=== PATIENT | female | born 1970 | race Caucasian/White ===

== ENCOUNTER 2022-07-17 14:24 | Emergency (ER) | payer OTHER ==
[~2022-07-17] VITALS: Ht 170.2 cm; Wt 74.8 kg
[2022-07-17] MEDS ORDERED: CALCIUM 250-VI1 EACH (15:07)
[2022-07-17] MEDS ORDERED: CELEBREX200 MG PO (15:08)
[2022-07-17] MEDS ORDERED: FERROUS SULFAT325 MG PO (15:08)
[2022-07-17] MEDS ORDERED: VITAMIN C1000 MG PO (15:08)
[2022-07-17] MEDS ORDERED: NALTREXONE HCL50 MG PO (15:09)
[2022-07-17] MEDS ORDERED: ZYRTEC10 M3 PO (15:09)
[2022-07-17] MEDS ORDERED: PROZAC20 MG PO (15:09)
[2022-07-17] MEDS ORDERED: GABAPENTIN300 MG PO (15:10)
[2022-07-17] MEDS ORDERED: CARAFATE1 GM PO (17:58)
[2022-07-17] MEDS ORDERED: PRILOSEC OTC20 MG PO (17:58)
--- OUTSIDE RECORDS SUMMARY | 2022-07-17 21:40 | XMS ---
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 Call the orthopaedic surgeon therapist for ED Substance Use/Overdose 08/21/2019 [facility] Client is currently in [facility] \T\amp; MH services. Call the orthopaedic surgeon therapist for ED. E.D. VISIT COUNT (12 MO.) 2 [facility] H. 1 TORI Hwang TOTAL 3 NOTE: Visits indicate total known visits. ED/UCC VISIT TRACKING (12 MO.) 07/17/2022 14:25 [facility] TYPE: Emergency COMPLAINT: - MULTIPLE COMPLAINTS [facility] COMPLAINT: - ETOH INTOXICATION 03/16/2022 14:23 [facility] COMPLAINT: - confusion INPATIENT VISIT TRACKING (12 MO.) No inpatient visits to display in this time frame [email or web address]
== END 2022-07-17 18:14 | disposition home or self-care (01) ==
LOC: ED 14:24
DX: K21.9 Gastro-esophageal reflux disease without esophagitis (principal); Z91.040 Latex allergy status; Z79.899 Other long term (current) drug therapy; Z98.84 Bariatric surgery status
CPT/HCPCS: 36415; 71045; 74177; 80053; 83690; 83735; 85025; 96375; 99284-25; J2405; J7030